=== PATIENT | female | born 1960 | race Hispanic/Latino ===

== ENCOUNTER 2022-10-26 13:54 | Outpatient (CLI) | payer OTHER ==
[~2022-10-26 13:54] MED LIST: Iopamidol 370 76% 100 ML VIAL ONE
== END 2022-10-26 13:55 | disposition home or self-care (01) ==
LOC: BICCT 13:54 → EDSTATUS 14:30
PROVIDERS: ATTEND Nurse Practitioner Family
DX: K86.89 Other specified diseases of pancreas (principal); R93.2 Abnormal findings on diagnostic imaging of liver and biliary tract
CPT/HCPCS: 74170; 82565; Q9967